=== PATIENT | female | born 2005 | race Caucasian/White ===

== ENCOUNTER 2024-03-12 23:07 | Emergency (ER) | payer SELFPAY ==
[~2024-03-12] VITALS: Ht 165.1 cm; Wt 84.0 kg
[2024-03-12] MEDS ORDERED: CYCL10TA21 MT (23:15)
[2024-03-12] MEDS ORDERED: IBUP-2029 MT (23:15)
[2024-03-12 23:28] VITALS: BP 112/92; PULSE 80; RESP 18; TEMP 98.1; O2SAT 97
[2024-03-12] MEDS: IBUPROFEN 600MG TABLET PO ONE (23:38)
== END 2024-03-12 23:42 | disposition home or self-care (01) ==
LOC: ER 23:07
DX: S33.5XXA Sprain of ligaments of lumbar spine, initial encounter (principal); V43.52XA Car driver injured in collision with other type car in traffic accident, initial encounter; Y93.89 Activity, other specified; Y92.89 Other specified places as the place of occurrence of the external cause; Y99.8 Other external cause status
CPT/HCPCS: 99283